=== PATIENT | female | born 1985 | race Caucasian/White ===

== ENCOUNTER 2018-06-30 17:27 | Emergency (ER) | payer MEDICARE, MEDICAID ==
[2018-06-30] MEDS ORDERED: NORMAL SALINE 1000 ML 1,000 ML IV ONE (18:35)
[2018-06-30] MEDS ORDERED: FENTANYL CITRATE INJ/PF 100 MCG/2 ML AMPUL IV ONE (18:35)
[2018-06-30] MEDS ORDERED: ONDANSETRON HCL INJ/PF 4 MG/2 ML SDV IV ONE (18:35)
--- NOTE | 2018-06-30 18:35 | ER Document Report ---
ED Medical Screen (RME) - General Chief Complaint: Abdominal Pain Stated Complaint: VOMITING Time Seen by Provider: 06/30/18 18:28 Notes: Patient is a 32-year-old female that presents to the emergency department for chief complaint of right upper quadrant pain and nausea and vomiting and diarrhea. Patient reports the pain and symptoms started on Thursday a little bit but then got worse over the past few days. ROS: Other than noted above, the 12 point review of systems was reviewed with the patient and were negative, all pertinent findings are included in the HPI. PHYSICAL EXAMINATION: Vital signs reviewed. GENERAL: Well-appearing, well-nourished and in no acute distress. HEAD: Atraumatic, normocephalic. EYES: Pupils equal round extraocular movements intact, conjunctiva are normal. ENT: Nares patent NECK: Normal range of motion CV: Heart rate tachycardic, regular rhythm LUNGS: No respiratory distress Musculoskeletal: Normal range of motion NEUROLOGICAL: Normal speech PSYCH: Normal mood, normal affect. MDM: Patient seen and examined for rapid initial assessment. Vital signs reviewed. A comprehensive ED assessment and evaluation of the patient, analysis of test results and completion of the medical decision making process will be conducted by additional ED providers. *Note is created using voice recognition software and may contain spelling, syntax or grammatical errors. - Related Data Allergies/Adverse Reactions: tetanus and diphtheria toxoids Allergy (Verified 06/30/18 17:29) Past Medical History - Social History Chew tobacco use (# tins/day): No Frequency of alcohol use: Rare Drug Abuse: None Renal/ Medical History: Denies: Hx Peritoneal Dialysis Physical Exam - Vital signs Vitals: Temp Pulse Resp BP Pulse Ox 98.7 F 106 H 18 179/92 H 97 06/30/18 17:31 06/30/18 17:31 06/30/18 17:31 06/30/18 17:31 06/30/18 17:31 Course - Vital Signs Vital signs: Temp Pulse Resp BP Pulse Ox 98.7 F 106 H 18 179/92 H 97 06/30/18 17:31 06/30/18 17:31 06/30/18 17:31 06/30/18 17:31 06/30/18 17:31
[2018-06-30 19:25] LABS: ABSOLUTE BASOPHILS # (AUTO) 0.1 10^3/uL (0.0-0.2); ABSOLUTE EOSINOPHILS # (AUTO) 0.2 10^3/uL (0.0-0.6); ABSOLUTE LYMPHOCYTES (AUTO) 3.3 10^3/uL (0.5-4.7); ABSOLUTE MONOCYTES (AUTO) 0.3 10^3/uL (0.1-1.4); ABSOLUTE NEUT (AUTO) 3.7 10^3/uL (1.7-8.2); BASOPHILS % (AUTO) 0.7 % (0-2); EOSINOPHILS % (AUTO) 2.7 % (0-6); HEMATOCRIT 45.5 % (36.0-47.0); HEMOGLOBIN 15.6 g/dL (12.0-15.5); LYMPHOCYTES % (AUTO) 43.5 % (13-45); MEAN CORPUSCULAR HEMOGLOBIN 32.1 pg (27.0-33.4); MEAN CORPUSCULAR HGB CONC 34.2 g/dL (32.0-36.0); MEAN CORPUSCULAR VOLUME 94 fl (80-97); MONOCYTES % (AUTO) 3.9 % (3-13); PLATELET COUNT 298 10^3/uL (150-450); RED BLOOD COUNT 4.85 10^6/uL (3.72-5.28); RED CELL DISTRIBUTION WIDTH 13.1 % (11.5-14.0); SEGMENTED NEUTROPHILS % (AUTO) 49.2 % (42-78); TOTAL CELLS COUNTED % (AUTO) 100 %; WHITE BLOOD COUNT 7.6 10^3/uL (4.0-10.5)
[2018-06-30 19:48] LABS: ALANINE AMINOTRANSFERASE 28 U/L (9-52); ALKALINE PHOSPHATASE 50 U/L (38-126); ANION GAP 13 (5-19); ASPARTATE AMINO TRANSFERASE 25 U/L (14-36); BILIRUBIN,DIRECT 0.3 mg/dL (0.0-0.4); BILIRUBIN,TOTAL 0.9 mg/dL (0.2-1.3); BLOOD UREA NITROGEN 11 mg/dL (7-20); CALCIUM 10.5 mg/dL (8.4-10.2); CARBON DIOXIDE 26 mmol/L (22-30); CHLORIDE 101 mmol/L (98-107); GLUCOSE 84 mg/dL (75-110); LIPASE 87.6 U/L (23-300); POTASSIUM 4.7 mmol/L (3.6-5.0); SODIUM 139.8 mmol/L (137-145); TOTAL PROTEIN 7.9 g/dL (6.3-8.2)
--- NOTE | 2018-06-30 20:16 | ER Document Report ---
ED General - General Chief Complaint: Abdominal Pain Stated Complaint: VOMITING Time Seen by Provider: 06/30/18 18:28 Primary Care Provider: CHRISTIANO PARRISH MD [ACTIVE STAFF] - Follow up in 3-5 days (This is the number of a GI doctor) Mode of Arrival: Stretcher Information source: Patient Notes: This is a 32-year-old female with a history of cerebral palsy, diverticulitis who presents to the emergency room with nausea, vomiting, abdominal pain for the last day. Patient states that the pain is in her upper abdomen. - HPI Onset: Last week Onset/Duration: Gradual Quality of pain: Dull Severity: Moderate Pain Level: 2 Associated symptoms: Nausea, Vomiting. denies: Shortness of breath Exacerbated by: Denies Relieved by: Denies Similar symptoms previously: Yes Recently seen / treated by doctor: Yes - Related Data Allergies/Adverse Reactions: azithromycin [From Zithromax] Allergy (Verified 06/30/18 20:26) tetanus and diphtheria toxoids Allergy (Verified 06/30/18 17:29) Past Medical History - General Information source: Patient - Social History Smoking Status: Never Smoker Cigarette use (# per day): No Chew tobacco use (# tins/day): No Frequency of alcohol use: Rare Drug Abuse: None Lives with: Family Family History: None Patient has suicidal ideation: No Patient has homicidal ideation: No - Past Medical History Cardiac Medical History: Reports: None Pulmonary Medical History: Reports: None EENT Medical History: Reports: None Neurological Medical History: Reports: None Endocrine Medical History: Reports: None Renal/ Medical History: Reports: None. Denies: Hx Peritoneal Dialysis Malignancy Medical History: Reports: None GI Medical History: Reports: Hx Diverticulitis Musculoskeletal Medical History: Reports None Skin Medical History: Reports None Psychiatric Medical History: Reports: Hx Depression - anxiety Traumatic Medical History: Reports: None Infectious Medical History: Reports: None Past Surgical History: Reports: Hx Orthopedic Surgery - foot/hip param Review of Systems - Review of Systems Constitutional: denies: Chills, Fever EENT: No symptoms reported Cardiovascular: denies: Chest pain, Palpitations, Heart racing Respiratory: No symptoms reported Gastrointestinal: See HPI Genitourinary: No symptoms reported Female Genitourinary: No symptoms reported Musculoskeletal: No symptoms reported Skin: No symptoms reported Hematologic/Lymphatic: No symptoms reported Neurological/Psychological: No symptoms reported Physical Exam - Vital signs Vitals: Temp Pulse Resp BP Pulse Ox 98.7 F 106 H 18 179/92 H 97 06/30/18 17:31 06/30/18 17:31 06/30/18 17:31 06/30/18 17:31 06/30/18 17:31 Notes: Physical exam: GENERAL: Patient is alert and oriented x3, complaining of upper abdominal pain. She has been given nausea medicine. HEAD: Atraumatic, normocephalic. EYES: Pupils equal round and reactive to light, extraocular movements intact, sclera anicteric, conjunctiva are normal. ENT: TMs normal, nares patent, oropharynx clear without exudates. Moist mucous membranes. NECK: Normal range of motion, supple without obvious mass or JVD. LUNGS: Breath sounds clear to auscultation bilaterally and equal. No wheezes rales or rhonchi. HEART: Regular rate and rhythm without murmurs, rubs or gallops. ABDOMEN: Soft, hypoactive bowel sounds. Tenderness to palpation in the upper quadrants. No guarding, no rebound. No masses appreciated. EXTREMITIES: Normal range of motion, no pitting or edema. No clubbing or cyan osis. NEUROLOGICAL: Cranial nerves II through XII grossly intact. Normal speech, moving all extremities. PSYCH: Normal mood, normal affect. SKIN: Warm, Dry, normal turgor, no rashes or lesions noted. Course - Re-evaluation Re-evalutation: 07/01/18 04:22 She doing better on exam repeat. She has not had any vomiting. She appears more comfortable. Her abdomen is soft. - Vital Signs Vital signs: Temp Pulse Resp BP Pulse Ox 97.7 F 78 15 136/94 H 97 07/01/18 02:21 07/01/18 02:21 07/01/18 02:21 07/01/18 02:21 07/01/18 02:21 - Laboratory Result Diagrams: 06/30/18 19:08 06/30/18 19:08 Laboratory results interpreted by me: 06/30/18 06/30/18 06/30/18 19:08 19:08 20:23 Hgb 15.6 H Calcium 10.5 H Urine Ketones 20 H Urine Blood MODERATE H - Diagnostic Test Radiology reviewed: Image reviewed, Reports reviewed - CT of the abdomen and ultrasound shows no acute abdominal process Discharge - Discharge Clinical Impression: Vomiting, Abdominal pain Condition: Stable Disposition: HOME, SELF-CARE Instructions: Abdominal Pain ([facility]), Vomiting ([facility]) Additional Instructions: As we discussed, your ultrasound looked good. CT showed no evidence of diverticulitis. Your labs look quite good. Rest, drink plenty of fluids: Start slowly and advance diet as tolerated. Take the Zofran for nausea Follow-up with the GI doctor: Left the number for them on the chart. Return to the emergency room for worsening pain, vomiting or any concerns or getting worse. Referrals: CHRISTIANO PARRISH MD [ACTIVE STAFF] - Follow up in 3-5 days (This is the number of a GI doctor)
[2018-06-30 20:54] LABS: APPEARANCE,URINE SLIGHTLY-CLOUDY; BILIRUBIN,URINE NEGATIVE (NEGATIVE); COLOR,URINE YELLOW; GLUCOSE, URINE NEGATIVE (NEGATIVE); KETONES,URINE 20 mg/dL (NEGATIVE); LEUKOCYTE ESTERASE,URINE NEGATIVE (NEGATIVE); NITRITE,URINE NEGATIVE (NEGATIVE); PROTEIN,URINE NEGATIVE (NEGATIVE); URINE SPECIFIC GRAVITY 1.016; UROBILINOGEN,URINE NEGATIVE mg/dL (<2.0)
--- NOTE | 2018-06-30 22:27 | RADIOLOGY REPORT (SQ) ---
US ABDOMEN LIMITED HISTORY: Right upper quadrant pain. COMPARISON: None. TECHNIQUE: Grayscale and color Doppler imaging of the right upper quadrant was performed. FINDINGS: The liver has normal echotexture without focal lesion identified. The main portal vein has normal hepatopetal flow. No shadowing gallstones are seen. No pericholecystic fluid or gallbladder wall thickening. The common bile duct is normal caliber. The pancreas is unremarkable. No hydronephrosis or shadowing renal stones are identified. The right kidney is normal in size. The visualized portions of the IVC and aorta are patent. IMPRESSION: No evidence of acute abdominal findings.
--- NOTE | 2018-06-30 23:37 | RADIOLOGY REPORT (SQ) ---
CT ABDOMEN PELVIS WITH IV CONTRAST EXAM DATE: 06/30/2018 21:32 HISTORY: Abdominal pain. COMPARISON: None. TECHNIQUE: CT scan of the abdomen and pelvis with IV contrast. This exam was performed according to our departmental dose-optimization program, which includes automated exposure control, adjustment of the mA and/or kV according to patient size and/or use of iterative reconstruction technique. FINDINGS: The lung bases are clear. No pleural or pericardial effusions. There is no hiatal hernia. The liver, spleen, pancreas, gallbladder, adrenal glands, and kidneys are unremarkable. No urinary stones are seen. The pelvic organs are also unremarkable. No small bowel obstruction. The appendix is not well visualized; however there are no inflammatory changes in the right lower quadrant. There is no evidence of diverticulitis. No intraperitoneal free fluid or free air is identified. There is moderate S-shaped scoliosis of the thoracolumbar spine. No acute osseous findings are appreciated. The aorta and IVC are normal. No body wall hernia is seen. IMPRESSION: No acute abdominal or pelvic pathology.
[2018-07-01] MEDS ORDERED: ONDANSETRON ODT 4 MG TAB (6 TAB/ER DISP) PO PRN (02:05)
[2018-07-01 02:36] VITALS: BP 136/94
== END 2018-07-01 02:38 | disposition home or self-care (01) ==
LOC: ER 17:27
DX: R11.2 Nausea with vomiting, unspecified (principal); R10.10 Upper abdominal pain, unspecified; R10.811 Right upper quadrant abdominal tenderness; R10.812 Left upper quadrant abdominal tenderness; G80.9 Cerebral palsy, unspecified; Z88.1 Allergy status to other antibiotic agents; Z88.7 Allergy status to serum and vaccine
CPT/HCPCS: 99284; 36415; 83690; 84703; 85025; 80053; 81001; 76705; 74177; J3010; J2405; J7030; A9270

== ENCOUNTER 2018-07-02 20:29 | Emergency (ER) | payer MEDICARE, MEDICAID ==
[2018-07-02] MEDS ORDERED: ONDANSETRON 4 MG TAB.RAPDIS PO ONE (22:55)
[2018-07-02] MEDS ORDERED: NORMAL SALINE 1000 ML 1,000 ML IV ONE (22:56)
--- NOTE | 2018-07-02 22:58 | ER Document Report ---
ED Medical Screen (RME) - General Chief Complaint: Abdominal Pain Stated Complaint: ABDOMINAL PAIN Time Seen by Provider: 07/02/18 22:55 Notes: 32-year-old female with chief complaint of vomiting and abdominal pain. Seen 2 days ago, had a workup including ultrasound and CAT scan, sent home with Zofran. States she has continued to vomit although she has not been taking Zofran. Denies fever. Pain is worse in the upper abdomen but is also generalized. Denies any history of abdominal surgeries, is sexually active but on control and just had a negative test. TRAVEL OUTSIDE OF THE [place] IN LAST 30 DAYS: No - Related Data Allergies/Adverse Reactions: azithromycin [From Zithromax] Allergy (Verified 06/30/18 20:26) tetanus and diphtheria toxoids Allergy (Verified 06/30/18 17:29) Past Medical History Renal/ Medical History: Denies: Hx Peritoneal Dialysis GI Medical History: Reports: Hx Diverticulitis Psychiatric Medical History: Reports: Hx Depression - anxiety Past Surgical History: Reports: Hx Orthopedic Surgery - foot/hip param Physical Exam - Vital signs Vitals: Temp Pulse Resp BP Pulse Ox 99.0 F 92 18 155/96 H 98 07/02/18 20:47 07/02/18 20:47 07/02/18 20:47 07/02/18 20:47 07/02/18 20:47 - Abdominal Tenderness: Tender - Generalized abdominal tenderness, worse in the upper abdomen, still no guarding or rigidity. Exam is limited by sitting position. Course - Re-evaluation Re-evalutation: I have greeted and performed a rapid initial assessment of this patient. A comprehensive ED assessment and evaluation of the patient, analysis of test results and completion of the medical decision making process will be conducted by additional ED providers. - Vital Signs Vital signs: Temp Pulse Resp BP Pulse Ox 99.0 F 92 18 155/96 H 98 07/02/18 20:47 07/02/18 20:47 07/02/18 20:47 07/02/18 20:47 07/02/18 20:47
[2018-07-02 23:22] LABS: ABSOLUTE BASOPHILS # (AUTO) 0.1 10^3/uL (0.0-0.2); ABSOLUTE EOSINOPHILS # (AUTO) 0.1 10^3/uL (0.0-0.6); ABSOLUTE LYMPHOCYTES (AUTO) 3.3 10^3/uL (0.5-4.7); ABSOLUTE MONOCYTES (AUTO) 0.3 10^3/uL (0.1-1.4); ABSOLUTE NEUT (AUTO) 3.7 10^3/uL (1.7-8.2); BASOPHILS % (AUTO) 0.7 % (0-2); EOSINOPHILS % (AUTO) 1.2 % (0-6); HEMATOCRIT 42.7 % (36.0-47.0); LYMPHOCYTES % (AUTO) 44.3 % (13-45); MEAN CORPUSCULAR HGB CONC 35.2 g/dL (32.0-36.0); MEAN CORPUSCULAR VOLUME 94 fl (80-97); MONOCYTES % (AUTO) 4.6 % (3-13); PLATELET COUNT 306 10^3/uL (150-450); RED BLOOD COUNT 4.55 10^6/uL (3.72-5.28); RED CELL DISTRIBUTION WIDTH 12.7 % (11.5-14.0); SEGMENTED NEUTROPHILS % (AUTO) 49.2 % (42-78); TOTAL CELLS COUNTED % (AUTO) 100 %; WHITE BLOOD COUNT 7.5 10^3/uL (4.0-10.5)
[2018-07-02 23:39] LABS: ALANINE AMINOTRANSFERASE 30 U/L (9-52); ALBUMIN 4.9 g/dL (3.5-5.0); ALKALINE PHOSPHATASE 50 U/L (38-126); ANION GAP 12 (5-19); ASPARTATE AMINO TRANSFERASE 29 U/L (14-36); BILIRUBIN,DIRECT 0.4 mg/dL (0.0-0.4); BILIRUBIN,TOTAL 0.8 mg/dL (0.2-1.3); BLOOD UREA NITROGEN 10 mg/dL (7-20); CALCIUM 10.2 mg/dL (8.4-10.2); CARBON DIOXIDE 26 mmol/L (22-30); CHLORIDE 103 mmol/L (98-107); GLUCOSE 87 mg/dL (75-110); LIPASE 91.6 U/L (23-300); POTASSIUM 3.9 mmol/L (3.6-5.0); SODIUM 141.4 mmol/L (137-145); TOTAL PROTEIN 7.8 g/dL (6.3-8.2)
--- NOTE | 2018-07-03 01:57 | ER Document Report ---
ED General - General Chief Complaint: Abdominal Pain Stated Complaint: ABDOMINAL PAIN Time Seen by Provider: 07/02/18 22:55 Notes: Patient is a 32-year-old female with a past medical history of cerebral palsy, no prior intra-abdominal surgeries, presents complaining of ongoing generalized abdominal pain, nausea and vomiting. The patient states that symptoms have remained relatively unchanged since discharge. She has not been taking the Zo kwasi that was prescribed stating "I do not think it will work anyways". She states it tempting to eat or drink seems to worsen her symptoms. She denies any history of similar symptoms in the past. She states the abdominal pain is most located in the epigastrium right upper quadrant, is a throbbing, aching, constant discomfort. She states that she would like me to contact her primary care doctor. She has not had fever. Denies dysuria, vaginal bleeding, vaginal discharge. Denies history of similar symptoms in the past. TRAVEL OUTSIDE OF THE [place] IN LAST 30 DAYS: No - Related Data Allergies/Adverse Reactions: azithromycin [From Zithromax] Allergy (Verified 06/30/18 20:26) tetanus and diphtheria toxoids Allergy (Verified 06/30/18 17:29) Past Medical History - General Information source: Patient - Social History Smoking Status: Never Smoker Chew tobacco use (# tins/day): No Frequency of alcohol use: None Drug Abuse: None Lives with: Spouse/Significant other Family History: Reviewed & Not Pertinent Patient has suicidal ideation: No Patient has homicidal ideation: No Renal/ Medical History: Denies: Hx Peritoneal Dialysis GI Medical History: Reports: Hx Diverticulitis Psychiatric Medical History: Reports: Hx Depression - anxiety Past Surgical History: Reports: Hx Orthopedic Surgery - foot/hip param Review of Systems - Review of Systems Notes: Constitutional: Negative for fever. HENT: Negative for sore throat. Eyes: Negative for visual changes. Cardiovascular: Negative for chest pain. Respiratory: Negative for shortness of breath. Gastrointestinal: Positive for abdominal pain and vomiting Genitourinary: Negative for dysuria. Musculoskeletal: Negative for back pain. Skin: Negative for rash. Neurological: Negative for headaches, weakness or numbness. 10 point ROS negative except as marked above and in HPI. Physical Exam - Vital signs Vitals: Temp Pulse Resp BP Pulse Ox 99.0 F 92 18 155/96 H 98 07/02/18 20:47 03/29/19 20:47 07/02/18 20:47 07/02/18 20:47 07/02/18 20:47 Interpretation: Hypertensive Notes: PHYSICAL EXAMINATION: GENERAL: Well-appearing, well-nourished and in no acute distress. HEAD: Atraumatic, normocephalic. EYES: Pupils equal round and reactive to light, extraocular movements intact, sclera anicteric, conjunctiva are normal. ENT: nares patent, oropharynx clear without exudates. Moist mucous membranes. NECK: Normal range of motion, supple without lymphadenopathy LUNGS: Breath sounds clear to auscultation bilaterally and equal. No wheezes rales or rhonchi. HEART: Regular rate and rhythm without murmurs ABDOMEN: Soft, nontender, normoactive bowel sounds. No guarding, no rebound. No masses appreciated. EXTREMITIES: Normal range of motion, no pitting or edema. No cyanosis. NEUROLOGICAL: No focal neurological deficits. Moves all extremities spontaneously and on command. PSYCH: Somewhat anxious SKIN: Warm, Dry, normal turgor, no rashes or lesions noted. Course - Re-evaluation Re-evalutation: 07/03/18 02:24 Patient presents with ongoing abdominal pain and vomiting although is not trialing the medications with which she was discharged home. The patient actually appears well on exam, her vitals are completely within normal limits. She has no focal tenderness, rebound or guarding on exam. Despite the patient's report that she has been unable to tolerate fluids she has not lost any weight from 2 days ago, her heart rate and blood pressure are both within normal limits and she has no evidence of acute kidney injury. The patient is actually been drinking fluids here in the emergency department without any apparent difficulty and took oral ondansetron. She did have a CT scan of her abdomen and pelvis as well as a right upper quadrant ultrasound 48 hours ago both of which were noted to be unremarkable. I have explained the patient that the exact etiology of her presentation is uncertain but I do not believe repeat imaging of the abdomen pelvis is appropriate at this point. I have tried to contact her primary care physician Dr. Damian and I am awaiting callback. I otherwise think patient is appropriate for discharge home with close outpatient follow-up. 07/03/18 03:22 Dr. Damian and I have spoken, he does agree with management at this point, states the patient has a long-standing history of severe anxiety, actually had been scheduled twice in his clinic within the past 1 week and did not present for that appointment. We did review all labs, imaging data as well as the previous visit and today's exam. He states that he agrees with my assessment and that the patient can be discharged home. At this time will discharge with return precautions and follow-up recommendations. Verbal discharge instructions given a the bedside and opportunity for questions given. Medication warnings reviewed. Patient is in agreement with this plan and has verbalized understanding of return precautions and the need for primary care follow-up in the next 24-72 hours. - Vital Signs Vital signs: Temp Pulse Resp BP Pulse Ox 99.0 F 92 18 155/96 H 98 07/02/18 20:47 07/02/18 20:47 07/02/18 20:47 07/02/18 20:47 07/02/18 20:47 - Laboratory Result Diagrams: 07/02/18 23:10 07/02/18 23:10 Discharge - Discharge Clinical Impression: Abdominal cramping Nausea & vomiting Qualifiers: Vomiting type: unspecified Vomiting Intractability: non-intractable Qualified Code(s): R11.2 - Nausea with vomiting, unspecified Condition: Good Disposition: HOME, SELF-CARE Additional Instructions: You have been seen in the Emergency Department (ED) today for nausea and vomiting. Your work up today has not shown a clear cause for your symptoms. I have prescribed Reglan which she can use as needed for nausea or vomiting Follow up with your doctor as soon as possible regarding today's emergent visit and your symptoms of nausea. I did speak directly to Dr.Haga lopez. He states that he will call you tomorrow to see how your doing, agrees with our management john and does not recommend any additional imaging today. Return to the Emergency Department (ED) if you develop worsening abdominal pain, bloody vomiting, bloody diarrhea, if you are unable to tolerate fluids due to vomiting, or if you develop other symptoms that concern you. Prescriptions: Metoclopramide HCl [Reglan 10 mg Tablet] 1 - 2 tab PO ASDIR PRN #25 tablet PRN Reason:
[2018-07-03 04:07] VITALS: BP 145/81
== END 2018-07-03 04:20 | disposition home or self-care (01) ==
LOC: ER 20:29
DX: R10.84 Generalized abdominal pain (principal); R11.2 Nausea with vomiting, unspecified; G80.9 Cerebral palsy, unspecified; Z88.1 Allergy status to other antibiotic agents; Z88.7 Allergy status to serum and vaccine; Z87.19 Personal history of other diseases of the digestive system
CPT/HCPCS: 99283; 96360; 96361; 36415; 83690; 85025; 80053; A9270; J7030; S0119

== ENCOUNTER 2018-08-22 22:37 | Emergency (ER) | payer MEDICARE, MEDICAID ==
[2018-08-23 00:24] LABS: ABSOLUTE EOSINOPHILS # (AUTO) 0.1 10^3/uL (0.0-0.6); ABSOLUTE LYMPHOCYTES (AUTO) 3.3 10^3/uL (0.5-4.7); ABSOLUTE MONOCYTES (AUTO) 0.3 10^3/uL (0.1-1.4); ABSOLUTE NEUT (AUTO) 5.1 10^3/uL (1.7-8.2); BASOPHILS % (AUTO) 0.5 % (0-2); EOSINOPHILS % (AUTO) 1.1 % (0-6); HEMATOCRIT 43.5 % (36.0-47.0); HEMOGLOBIN 14.7 g/dL (12.0-15.5); LYMPHOCYTES % (AUTO) 37.2 % (13-45); MEAN CORPUSCULAR HEMOGLOBIN 31.5 pg (27.0-33.4); MEAN CORPUSCULAR HGB CONC 33.9 g/dL (32.0-36.0); MEAN CORPUSCULAR VOLUME 93 fl (80-97); MONOCYTES % (AUTO) 3.7 % (3-13); PLATELET COUNT 278 10^3/uL (150-450); RED BLOOD COUNT 4.67 10^6/uL (3.72-5.28); RED CELL DISTRIBUTION WIDTH 12.6 % (11.5-14.0); SEGMENTED NEUTROPHILS % (AUTO) 57.5 % (42-78); TOTAL CELLS COUNTED % (AUTO) 100 %; WHITE BLOOD COUNT 8.9 10^3/uL (4.0-10.5)
[2018-08-23 00:52] LABS: ALANINE AMINOTRANSFERASE 24 U/L (9-52); ALBUMIN 4.7 g/dL (3.5-5.0); ALKALINE PHOSPHATASE 49 U/L (38-126); ANION GAP 11 (5-19); ASPARTATE AMINO TRANSFERASE 20 U/L (14-36); BILIRUBIN,DIRECT 0.2 mg/dL (0.0-0.4); BILIRUBIN,TOTAL 0.5 mg/dL (0.2-1.3); BLOOD UREA NITROGEN 9 mg/dL (7-20); CALCIUM 9.7 mg/dL (8.4-10.2); CARBON DIOXIDE 28 mmol/L (22-30); CHLORIDE 101 mmol/L (98-107); GLUCOSE 87 mg/dL (75-110); POTASSIUM 4.3 mmol/L (3.6-5.0); SODIUM 139.8 mmol/L (137-145); TOTAL PROTEIN 7.5 g/dL (6.3-8.2)
[2018-08-23 01:06] LABS: ACETAMINOPHEN < 10 ug/mL (10-30); ALCOHOL < 10 mg/dL (NONE DETECTED); SALICYLATE < 1.0 mg/dL (2.0-20.0)
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
[2018-08-23 01:55] LABS: APPEARANCE,URINE CLEAR; BILIRUBIN,URINE NEGATIVE (NEGATIVE); COLOR,URINE YELLOW; GLUCOSE, URINE NEGATIVE (NEGATIVE); KETONES,URINE NEGATIVE (NEGATIVE); LEUKOCYTE ESTERASE,URINE SMALL (NEGATIVE); NITRITE,URINE NEGATIVE (NEGATIVE); PROTEIN,URINE NEGATIVE (NEGATIVE); URINE SPECIFIC GRAVITY 1.006; UROBILINOGEN,URINE NEGATIVE mg/dL (<2.0)
[2018-08-23 02:08] LABS: URINE AMPHETAMINES SCREEN NEGATIVE; URINE BARBITURATES SCREEN NEGATIVE; URINE BENZODIAZEPINES SCREEN NEGATIVE; URINE COCAINE SCREEN NEGATIVE; URINE MARIJUANA (THC) SCREEN NEGATIVE; URINE METHADONE SCREEN NEGATIVE; URINE PHENCYCLIDINE SCREEN NEGATIVE
--- NOTE | 2018-08-23 03:17 | RADIOLOGY REPORT (SQ) ---
EXAM DESCRIPTION: XR FOOT 3 OR MORE VIEWS COMPLETED DATE/TME: 08/23/2018 00:55 CLINICAL HISTORY: 33 years, Female, left foot pain/swelling COMPARISON: None. FINDINGS: 3 views of the left foot. Pes planus deformity. Hallux valgus deformity. No acute fracture or dislocation. IMPRESSION: 1. No acute fracture or dislocation. copyright 2010 [employer]- All Rights Reserved
--- NOTE | 2018-08-23 06:37 | EKG REPORT ---
SEVERITY:- NORMAL ECG - SINUS RHYTHM : Confirmed by: Dk Riggins MD 23-Aug-2018 06:36:20
[2018-08-23] MEDS: METOCLOPRAMIDE HCL 10 MG TABLET PO SCH ×2 (08:43→09:06)
[2018-08-23] MEDS: PRENATAL VITAMIN W DHA CAPSULE PO SCH ×2 (08:43→09:05)
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
[2018-08-23] MEDS: CHLORPROMAZINE HCL 50 MG TABLET PO SCH ×2 (15:00→22:11)
[2018-08-23] MEDS: BENZTROPINE MESYLATE 1 MG TABLET PO SCH (15:00)
[2018-08-23] MEDS ORDERED: METOCLOPRAMIDE HCL 10 MG TABLET PO ONE (22:03)
[2018-08-23] MEDS ORDERED: PRENATAL VITAMIN W DHA CAPSULE PO ONE (22:04)
[2018-08-24] MEDS: CHLORPROMAZINE HCL 50 MG TABLET PO SCH (06:41)
[2018-08-24] MEDS: METOCLOPRAMIDE HCL 10 MG TABLET PO SCH (09:09)
[2018-08-24] MEDS: BENZTROPINE MESYLATE 1 MG TABLET PO SCH (09:09)
[2018-08-24] MEDS: PRENATAL VITAMIN W DHA CAPSULE PO SCH (09:09)
--- NOTE | 2018-08-24 09:41 | ER Document Report ---
Doctor's Note Notes: 08/24/18 09:41 33-year-old female with mild cerebral palsy with some paranoid delusions. They are attempting to find placement. Vital signs are stable. Previous labs as recorded. Patient is calm and cooperative at this time.
[2018-08-24 11:46] VITALS: BP 102/60
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
== END 2018-08-24 13:30 ==
LOC: ER 22:37
DX: Z04.6 Encounter for general psychiatric examination, requested by authority (principal); F22 Delusional disorders; M79.672 Pain in left foot; G80.9 Cerebral palsy, unspecified; Z91.14 Patient's other noncompliance with medication regimen; Z88.1 Allergy status to other antibiotic agents; Z88.7 Allergy status to serum and vaccine; Z87.891 Personal history of nicotine dependence
CPT/HCPCS: 93005; 99285; 36415; 80307 ×4; 84703; 85025; 80053; 81001; 93010; A9270 ×8; J3490

== ENCOUNTER 2018-09-01 18:55 | Emergency (ER) | payer MEDICARE, MEDICAID ==
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
[2018-09-01 20:43] LABS: ABSOLUTE EOSINOPHILS # (AUTO) 0.1 10^3/uL (0.0-0.6); ABSOLUTE LYMPHOCYTES (AUTO) 2.8 10^3/uL (0.5-4.7); ABSOLUTE MONOCYTES (AUTO) 0.3 10^3/uL (0.1-1.4); ABSOLUTE NEUT (AUTO) 3.2 10^3/uL (1.7-8.2); BASOPHILS % (AUTO) 0.8 % (0-2); EOSINOPHILS % (AUTO) 1.8 % (0-6); HEMATOCRIT 39.6 % (36.0-47.0); HEMOGLOBIN 13.5 g/dL (12.0-15.5); LYMPHOCYTES % (AUTO) 43.8 % (13-45); MEAN CORPUSCULAR HEMOGLOBIN 31.9 pg (27.0-33.4); MEAN CORPUSCULAR HGB CONC 34.1 g/dL (32.0-36.0); MEAN CORPUSCULAR VOLUME 94 fl (80-97); MONOCYTES % (AUTO) 4.3 % (3-13); PLATELET COUNT 295 10^3/uL (150-450); RED BLOOD COUNT 4.23 10^6/uL (3.72-5.28); RED CELL DISTRIBUTION WIDTH 12.8 % (11.5-14.0); SEGMENTED NEUTROPHILS % (AUTO) 49.3 % (42-78); TOTAL CELLS COUNTED % (AUTO) 100 %; WHITE BLOOD COUNT 6.4 10^3/uL (4.0-10.5)
[2018-09-01 20:48] LABS: APPEARANCE,URINE CLOUDY; BILIRUBIN,URINE NEGATIVE (NEGATIVE); COLOR,URINE YELLOW; GLUCOSE, URINE NEGATIVE (NEGATIVE); KETONES,URINE TRACE mg/dL (NEGATIVE); LEUKOCYTE ESTERASE,URINE MODERATE (NEGATIVE); NITRITE,URINE NEGATIVE (NEGATIVE); PROTEIN,URINE NEGATIVE (NEGATIVE); URINE SPECIFIC GRAVITY 1.023
[2018-09-01 21:11] LABS: ACETAMINOPHEN < 10 ug/mL (10-30); ALANINE AMINOTRANSFERASE 22 U/L (9-52); ALBUMIN 4.5 g/dL (3.5-5.0); ALCOHOL < 10 mg/dL (NONE DETECTED); ALKALINE PHOSPHATASE 42 U/L (38-126); ANION GAP 9 (5-19); ASPARTATE AMINO TRANSFERASE 22 U/L (14-36); BILIRUBIN,DIRECT 0.2 mg/dL (0.0-0.4); BILIRUBIN,TOTAL 0.4 mg/dL (0.2-1.3); BLOOD UREA NITROGEN 11 mg/dL (7-20); CALCIUM 9.5 mg/dL (8.4-10.2); CARBON DIOXIDE 28 mmol/L (22-30); CHLORIDE 105 mmol/L (98-107); POTASSIUM 4.5 mmol/L (3.6-5.0); SALICYLATE < 1.0 mg/dL (2.0-20.0); SODIUM 142.1 mmol/L (137-145); TOTAL PROTEIN 6.8 g/dL (6.3-8.2)
[2018-09-01 21:15] LABS: GLUCOSE 66 mg/dL (75-110)
[2018-09-01 21:18] LABS: URINE AMPHETAMINES SCREEN NEGATIVE; URINE BARBITURATES SCREEN NEGATIVE; URINE BENZODIAZEPINES SCREEN NEGATIVE; URINE COCAINE SCREEN NEGATIVE; URINE MARIJUANA (THC) SCREEN NEGATIVE; URINE METHADONE SCREEN NEGATIVE; URINE PHENCYCLIDINE SCREEN NEGATIVE
[2018-09-01] MEDS ORDERED: LORAZEPAM INJ 2 MG/1 ML VIAL IM ONE (21:46)
[2018-09-01] MEDS ORDERED: DIPHENHYDRAMINE HCL 50 MG/ML VIAL IM ONE (21:46)
--- NOTE | 2018-09-01 22:17 | EKG REPORT ---
SEVERITY:- NORMAL ECG - SINUS RHYTHM : Confirmed by: Angle Mir MD 01-Sep-2018 22:16:19
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
[2018-09-01] MEDS ORDERED: CEPHALEXIN 500 MG CAPSULE PO ONE (23:11)
[2018-09-02] MEDS ORDERED: CEPHALEXIN 500 MG CAPSULE PO ONE (09:05)
[2018-09-02] MEDS ORDERED: METOCLOPRAMIDE HCL 10 MG TABLET PO ONE (10:03)
[2018-09-02] MEDS ORDERED: PRENATAL VITAMIN W DHA CAPSULE PO ONE (10:05)
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
--- NOTE | 2018-09-02 11:54 | PSYCHOLOGICAL NOTE ---
Psych Note - Psych Note Date seen by psych provider: 09/02/18 Time seen by psych provider: 07:30 - 1040 Psych Note: Reason for Consult: IVC 33-year-old female with schizophrenia, cerebral palsy, ataxia presents with IVC paperwork in place that was initiated from [facility] for paranoid delusions, hallucinations. Patient is alert and orientated to person, place, and time. Mood is overall euthymic with congruent affect. Patient denies suicidal and homicidal ideation. Delusions of persecution and paranoia are noted. Patient is not demonstrating behavior of currently responding to internal stimuli i.e. good eye contact and organized linear thought process. Thought content is very focused on patient's delusions. Attention and concentration is poor. Insight, judgment, impulse control is poor. Diagnosis: 298.9 (F29) Unspecified Schizophrenia Spectrum and Other Psychotic Disorder Medication recommendations made by the psychiatric medical provider, Dr. Anthony MD., includes: Add Thorazine 50MG every 8 hours for psychosis Add Cogentin 1MG daily to curb tremor side effects often associated with antipsychotic medications Impression/Plan: Recommendation to maintain IVC. Patient is demonstrating very little insight to her current circumstance i.e. thinking there has been a case of mistaken identity in regards to her IVC and her mental health diagnosis. Patient verbalizes delusions of both persecution and paranoia. She has very little insight and judgment into her mental health diagnosis and apparently has not been taking any medications since her release from [facility] on Wednesday, August 29, 2018. Patient was accepted to [facility]; transportation has been requested. Also [facility]'s office report transportation will occur tomorrow. Dr. Nolan was consulted to care management of this patient; attending physicians in agreement with recommendations and disposition.
[2018-09-02 14:24] VITALS: BP 125/80
== END 2018-09-02 14:15 | disposition other institution (70) ==
LOC: ER 18:55
DX: F22 Delusional disorders (principal); F20.9 Schizophrenia, unspecified; G80.9 Cerebral palsy, unspecified; Z88.1 Allergy status to other antibiotic agents; Z88.7 Allergy status to serum and vaccine
CPT/HCPCS: 93005; 99285; 96372; 36415; 80307 ×4; 84703; 85025; 80053; 81001; 93010; A9270 ×2; J1200; J2060

== ENCOUNTER 2018-10-21 12:00 | Emergency (ER) | payer MEDICARE, MEDICAID ==
--- NOTE | 2018-10-21 12:26 | ER Document Report ---
ED Medical Screen (RME) - General Chief Complaint: Abdominal Pain Stated Complaint: ABDOMINAL PAIN Time Seen by Provider: 10/21/18 12:14 Primary Care Provider: MARTY MARTINEZ MD [Primary Care Provider] - Follow up as needed Mode of Arrival: Wheelchair Information source: Patient Notes: Patient is a 33-year-old female with history of gastroparesis complaining of abdominal pain over the last 2 days with nausea and diarrhea. Patient denies any fevers. Exam: Generalized abdominal tenderness. I have greeted and performed a rapid initial assessment of this patient. A comprehensive ED assessment and evaluation of the patient, analysis of test results and completion of the medical decision making process will be conducted by additional ED providers. I have specifically instructed the patient or family members with the patient to immediately return to any nursing staff should anything change in the patient's condition or with their chief complaint. This medical record was dictated with voice recognizing software. There may be grammatical, syntax errors that are unintended. TRAVEL OUTSIDE OF THE [place] IN LAST 30 DAYS: No - Related Data Allergies/Adverse Reactions: azithromycin [From Zithromax] Allergy (Verified 10/21/18 12:01) tetanus and diphtheria toxoids Allergy (Verified 10/21/18 12:01) Past Medical History - Social History Frequency of alcohol use: Occasional Drug Abuse: None Renal/ Medical History: Denies: Hx Peritoneal Dialysis GI Medical History: Reports: Hx Diverticulitis Psychiatric Medical History: Reports: Hx Depression - anxiety Past Surgical History: Reports: Hx Orthopedic Surgery - foot/hip param Physical Exam - Vital signs Vitals: Temp Pulse Resp BP Pulse Ox 98.3 F 91 20 146/92 H 98 10/21/18 12:04 10/21/18 12:04 10/21/18 12:04 10/21/18 12:04 10/21/18 12:04 Course - Vital Signs Vital signs: Temp Pulse Resp BP Pulse Ox 98.3 F 91 20 146/92 H 98 10/21/18 12:04 10/21/18 12:04 10/21/18 12:04 10/21/18 12:04 10/21/18 12:04 Doctor's Discharge - Discharge Referrals: MARTY MARTINEZ MD [Primary Care Provider] - Follow up as needed
[2018-10-21 13:01] LABS: ABSOLUTE LYMPHOCYTES (AUTO) 2.7 10^3/uL (0.5-4.7); ABSOLUTE MONOCYTES (AUTO) 0.2 10^3/uL (0.1-1.4); ABSOLUTE NEUT (AUTO) 5.1 10^3/uL (1.7-8.2); BASOPHILS % (AUTO) 0.5 % (0-2); EOSINOPHILS % (AUTO) 0.4 % (0-6); HEMATOCRIT 45.3 % (36.0-47.0); HEMOGLOBIN 15.2 g/dL (12.0-15.5); LYMPHOCYTES % (AUTO) 33.6 % (13-45); MEAN CORPUSCULAR HEMOGLOBIN 31.7 pg (27.0-33.4); MEAN CORPUSCULAR HGB CONC 33.5 g/dL (32.0-36.0); MEAN CORPUSCULAR VOLUME 95 fl (80-97); MONOCYTES % (AUTO) 2.9 % (3-13); PLATELET COUNT 347 10^3/uL (150-450); RED BLOOD COUNT 4.79 10^6/uL (3.72-5.28); RED CELL DISTRIBUTION WIDTH 12.9 % (11.5-14.0); SEGMENTED NEUTROPHILS % (AUTO) 62.6 % (42-78); TOTAL CELLS COUNTED % (AUTO) 100 %; WHITE BLOOD COUNT 8.2 10^3/uL (4.0-10.5)
[2018-10-21 13:07] LABS: APPEARANCE,URINE SLIGHTLY-CLOUDY; BILIRUBIN,URINE NEGATIVE (NEGATIVE); COLOR,URINE YELLOW; GLUCOSE, URINE NEGATIVE (NEGATIVE); KETONES,URINE TRACE mg/dL (NEGATIVE); LEUKOCYTE ESTERASE,URINE NEGATIVE (NEGATIVE); NITRITE,URINE NEGATIVE (NEGATIVE); PROTEIN,URINE NEGATIVE (NEGATIVE); URINE SPECIFIC GRAVITY 1.013; UROBILINOGEN,URINE NEGATIVE mg/dL (<2.0)
[2018-10-21 13:18] LABS: ALANINE AMINOTRANSFERASE 28 U/L (9-52); ALKALINE PHOSPHATASE 44 U/L (38-126); ANION GAP 12 (5-19); ASPARTATE AMINO TRANSFERASE 24 U/L (14-36); BILIRUBIN,DIRECT 0.3 mg/dL (0.0-0.4); BILIRUBIN,TOTAL 0.5 mg/dL (0.2-1.3); BLOOD UREA NITROGEN 9 mg/dL (7-20); CALCIUM 10.2 mg/dL (8.4-10.2); CARBON DIOXIDE 26 mmol/L (22-30); CHLORIDE 104 mmol/L (98-107); GLUCOSE 87 mg/dL (75-110); LIPASE 96.1 U/L (23-300); POTASSIUM 4.4 mmol/L (3.6-5.0); SODIUM 141.7 mmol/L (137-145); TOTAL PROTEIN 7.9 g/dL (6.3-8.2)
--- NOTE | 2018-10-21 16:47 | ER Document Report ---
ED General - General Chief Complaint: Abdominal Pain Stated Complaint: ABDOMINAL PAIN Time Seen by Provider: 10/21/18 12:14 Primary Care Provider: MARTY MARTINEZ MD [NO LOCAL MD] - Follow up as needed Mode of Arrival: Wheelchair Notes: This is a 33-year-old female patient emergency department complaining of gastroparesis. Patient has long-standing mental health issues. Has been recently committed to mental health institutions. States that this is not her mental health issues that she has gastroparesis and she needs help for that. When questioned about her mental health she states that there is an person that is trying to get her involuntarily committed who poses as a nurse and keeps getting her committed. She refuses to cooperate with our exam. Began screaming. TRAVEL OUTSIDE OF THE [place] IN LAST 30 DAYS: No - HPI Onset: Just prior to arrival Quality of pain: Achy Severity: Mild Pain Level: 2 Associated symptoms: None - Related Data Allergies/Adverse Reactions: azithromycin [From Zithromax] Allergy (Verified 10/21/18 12:01) tetanus and diphtheria toxoids Allergy (Verified 10/21/18 12:01) Past Medical History - General Information source: Patient - Social History Smoking Status: Never Smoker Frequency of alcohol use: Occasional Drug Abuse: None Family History: Reviewed & Not Pertinent Patient has suicidal ideation: No Patient has homicidal ideation: No Renal/ Medical History: Denies: Hx Peritoneal Dialysis GI Medical History: Reports: Hx Diverticulitis Psychiatric Medical History: Reports: Hx Depression - anxiety Past Surgical History: Reports: Hx Orthopedic Surgery - foot/hip param Review of Systems - Review of Systems Notes: Constitutional: denies: Chills, Diaphoresis, Fever, Malaise, Weakness EENT: denies: Eye discharge, Blurred vision, Tearing, Double vision, Nose congestion, Nose discharge, Throat swelling, Mouth pain Cardiovascular: denies: Palpitations, Heart racing, Orthopnea, Dyspnea, Chest pain Respiratory: denies: Cough, Hurts to breathe, Wheezing, Shortness of breath Gastrointestinal: denies: Diarrhea, Nausea, Vomiting, Black stools, bright red blood in stool, +Abdominal pain, Genitourinary: denies: Burning, Dysuria, Discharge, Frequency, Flank pain, Hematuria Musculoskeletal: denies: Joint pain, Joint swelling, Muscle pain, Muscle stiffness, back pain Hematologic/Lymphatic: denies: Anemia, Easy bleeding, Easy bruising, Blood clots Neurological/Psychological: denies: Confusion, Dementia, Depression, Loss of consciousness Skin: No lesions, no masses, no skin breakdown, no abscesses Physical Exam - Vital signs Vitals: Temp Pulse Resp BP Pulse Ox 98.3 F 91 20 146/92 H 98 10/21/18 12:04 10/21/18 12:04 10/21/18 12:04 10/21/18 12:04 10/21/18 12:04 Interpretation: Normal - General General appearance: Appears well, Alert - HEENT Head: Normocephalic, Atraumatic Eyes: Normal Pupils: PERRL - Respiratory Respiratory status: No respiratory distress Chest status: Nontender Breath sounds: Normal Chest palpation: Normal - Cardiovascular Rhythm: Regular Heart sounds: Normal auscultation Murmur: No - Abdominal Inspection: Normal Distension: No distension Bowel sounds: Normal Tenderness: Nontender Organomegaly: No organomegaly - Back Back: Normal, Nontender - Extremities General upper extremity: Normal inspection, Nontender, Normal color, Normal ROM, Normal temperature General lower extremity: Normal inspection, Nontender, Normal color, Normal ROM, Normal temperature, Normal weight bearing. No: Nasim's sign - Neurological Neuro grossly intact: Yes Cognition: Normal Orientation: AAOx4 [place] Coma Scale Eye Opening: Spontaneous [place] Coma Scale Verbal: Oriented [place] Coma Scale Motor: Obeys Commands Elizabeth Coma Scale Total: 15 Speech: Normal Motor strength normal: LUE, RUE, LLE, RLE Sensory: Normal - Psychological Associated symptoms: Aggressive, Agitated, Combative - Skin Skin Temperature: Warm Skin Moisture: Dry Skin Color: Normal Course - Re-evaluation Re-evalutation: 10/21/18 17:40 Patient let me evaluate her and then began to go on a tirade about how someone was trying to poison her. Began screaming. Refusing to change. Obviously acut benny psychotic. Will need to medicate. Will place her on IV fluids. Mental health has seen and agrees. We will continue to follow throughout the night. Laboratory 10/21/18 10/21/18 10/21/18 12:25 12:25 12:25 WBC 8.2 RBC 4.79 Hgb 15.2 Hct 45.3 MCV 95 MCH 31.7 MCHC 33.5 RDW 12.9 Plt Count 347 Seg Neutrophils % 62.6 Lymphocytes % 33.6 Monocytes % 2.9 L Eosinophils % 0.4 Basophils % 0.5 Absolute Neutrophils 5.1 Absolute Lymphocytes 2.7 Absolute Monocytes 0.2 Absolute Eosinophils 0.0 Absolute Basophils 0.0 Sodium 141.7 Potassium 4.4 Chloride 104 Carbon Dioxide 26 Anion Gap 12 BUN 9 Creatinine 0.81 Est GFR ( Amer) > 60 Est GFR (Non-Af Amer) > 60 Glucose 87 Calcium 10.2 Total Bilirubin 0.5 Direct Bilirubin 0.3 Neonat Total Bilirubin Not Reportable Neonat Direct Bilirubin Not Reportable Neonat Indirect Bili Not Reportable AST 24 ALT 28 Alkaline Phosphatase 44 Total Protein 7.9 Albumin 5.0 Lipase 96.1 Urine Color YELLOW Urine Appearance SLIGHTLY-CLOUDY Urine pH 6.0 Ur Specific [place] 1.013 Urine Protein NEGATIVE Urine Glucose (UA) NEGATIVE Urine Ketones TRACE H Urine Blood NEGATIVE Urine Nitrite NEGATIVE Urine Bilirubin NEGATIVE Urine Urobilinogen NEGATIVE Ur Leukocyte Esterase NEGATIVE Urine WBC (Auto) 1 Urine RBC (Auto) 14 U Hyaline Cast (Auto) 11 Squamous Epi Cells Auto 1 Urine Mucus (Auto) FEW Urine Ascorbic Acid 40 H Urine HCG, Qual NEGATIVE 10/21/18 17:43 Acute Abdomen Series 10/21/18 16:48 IMPRESSION: NO RADIOGRAPHIC EVIDENCE FOR ACUTE ABDOMINAL DISEASE. MARKED SCOLIOSIS. 10/21/18 17:43 - Vital Signs Vital signs: Temp Pulse Resp BP Pulse Ox 98.3 F 91 20 146/92 H 98 10/21/18 12:04 10/21/18 12:04 10/21/18 12:04 10/21/18 12:04 10/21/18 12:04 - Laboratory Result Diagrams: 10/21/18 12:25 10/21/18 12:25 Laboratory results interpreted by me: 10/21/18 10/21/18 12:25 12:25 Monocytes % 2.9 L Urine Ketones TRACE H Urine Ascorbic Acid 40 H Discharge - Discharge Clinical Impression: Acute psychosis, Gastroparesis Disposition: HOME, SELF-CARE Referrals: MARTY MARTINEZ MD [NO LOCAL MD] - Follow up as needed
[2018-10-21] MEDS ORDERED: DEXTROSE 5%-1/2 NORMAL SALINE 1,000 ML IV ONE (16:48)
--- NOTE | 2018-10-21 17:29 | RADIOLOGY REPORT (SQ) ---
EXAM DESCRIPTION: ACUTE ABDOMEN SERIES COMPLETED DATE/TIME: 10/21/2018 5:16 pm REASON FOR STUDY: abd pain COMPARISON: None. NUMBER OF VIEWS: Three views. TECHNIQUE: Frontal chest, supine abdomen and upright/decubitus abdomen radiographic images acquired. LIMITATIONS: None. FINDINGS: CHEST: Lungs clear of infiltrates. FREE AIR: None. No abnormal gas collections. BOWEL GAS PATTERN: Nonobstructive pattern. No dilated loops or air fluid levels. CALCIFICATIONS: No suspicious calcifications. HARDWARE: None in the abdomen. SOFT TISSUES: No gross mass or suggestion of organomegaly. BONES: Marked thoracolumbar scoliosis. No acute fracture. No worrisome bone lesions. OTHER: No other significant finding. IMPRESSION: NO RADIOGRAPHIC EVIDENCE FOR ACUTE ABDOMINAL DISEASE. MARKED SCOLIOSIS. TECHNICAL DOCUMENTATION: JOB ID: [id number] [employer]- All Rights Reserved Reading location - IP/workstation name: [email or web address]
[2018-10-21] MEDS ORDERED: LORAZEPAM INJ 2 MG/1 ML VIAL IM ONE (17:44)
[2018-10-21] MEDS ORDERED: HALOPERIDOL LACTATE INJ 5 MG/1 ML VIAL IM ONE (17:44)
[2018-10-21 17:56] LABS: URINE AMPHETAMINES SCREEN NEGATIVE; URINE BARBITURATES SCREEN NEGATIVE; URINE BENZODIAZEPINES SCREEN NEGATIVE; URINE COCAINE SCREEN NEGATIVE; URINE MARIJUANA (THC) SCREEN NEGATIVE; URINE METHADONE SCREEN NEGATIVE; URINE PHENCYCLIDINE SCREEN NEGATIVE
[2018-10-21 18:55] LABS: ACETAMINOPHEN < 10 ug/mL (10-30); ALCOHOL < 10 mg/dL (NONE DETECTED); SALICYLATE < 1.0 mg/dL (2.0-20.0)
--- NOTE | 2018-10-22 10:25 | ER Document Report ---
Doctor's Note Notes: 10/22/18 10:24 I have evaluated this pt. this amand she whitten no c/o at this time. She feels all of her needs are being metand her physical exam is normal. She wants to go home. She is awaiting disposition per mental health.
--- NOTE | 2018-10-22 10:51 | RADIOLOGY REPORT (SQ) ---
EXAM DESCRIPTION: CT HEAD WITHOUT COMPLETED DATE/TIME: 10/22/2018 10:40 am REASON FOR STUDY: psychosis COMPARISON: None. TECHNIQUE: Axial images acquired through the brain without intravenous contrast. Images reviewed wi th bone, brain and subdural windows. Additional sagittal and coronal reconstructions were generated. Images stored on PACS. All CT scanners at this facility use dose modulation, iterative reconstruction, and/or weight based d osing when appropriate to reduce radiation dose to as low as reasonably achievable (ALARA). [facility]: Dose Right [facility]: CareDose [facility]: Dose Right [facility]: Teradose 4D [facility]: Xmybox RADIATION DOSE: CT Rad equipment meets quality standard of care and radiation dose reduction techniq ues were employed. CTDIvol: 53.2 mGy. DLP: 991 mGy-cm. mGy. LIMITATIONS: None. FINDINGS: VENTRICLES: Normal size and contour. CEREBRUM: No masses. No hemorrhage. No midline shift. No evidence for acute infarction. Normal gra y/white matter differentiation. No areas of low density in the white matter. CEREBELLUM: No masses. No hemorrhage. No alteration of density. No evidence for acute infarction. EXTRAAXIAL SPACES: No fluid collections. No masses. ORBITS AND GLOBE: No intra- or extraconal masses. Normal contour of globe without masses. CALVARIUM: No fracture. PARANASAL SINUSES: No fluid or mucosal thickening. SOFT TISSUES: No mass or hematoma. OTHER: No other significant finding. IMPRESSION: No acute intracranial pathology. EVIDENCE OF ACUTE STROKE: NO. COMMENT: Quality ID # [id number]: Final reports with documentation of one or more dose reduction techniques (e.g., Automated exposure control, adjustment of the mA and/or kV according to patient size, use of iterative reconstruction technique) TECHNICAL DOCUMENTATION: JOB ID: [id number] [employer]- All Rights Reserved Reading location - IP/workstation name: [email or web address]
[2018-10-22] MEDS: RISPERIDONE 0.25 MG TABLET PO SCH ×2 (11:55→18:58)
[2018-10-22] MEDS: DIVALPROEX SODIUM 500 MG TAB.SR.24H PO SCH ×2 (11:56→18:58)
[2018-10-22] MEDS: BUSPIRONE HCL 10 MG TABLET PO SCH ×2 (11:56→18:59)
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
[2018-10-22] MEDS ORDERED: RISPERIDONE 0.25 MG TABLET PO SCH (18:00)
[2018-10-22] MEDS ORDERED: BUSPIRONE HCL 10 MG TABLET PO SCH (18:00)
[2018-10-22] MEDS ORDERED: DIVALPROEX SODIUM 500 MG TAB.SR.24H PO SCH (18:00)
[2018-10-23] MEDS: BUSPIRONE HCL 10 MG TABLET PO SCH ×2 (10:49→17:33)
[2018-10-23] MEDS: RISPERIDONE 0.25 MG TABLET PO SCH ×2 (10:50→17:33)
[2018-10-23] MEDS: DIVALPROEX SODIUM 500 MG TAB.SR.24H PO SCH ×2 (10:50→17:33)
--- NOTE | 2018-10-23 13:26 | ER Document Report ---
Doctor's Note Notes: 10/23/18 13:21 Patient is here being evaluated for psychosis. Has a history of follow-up psychotic behavior. Patient's labs appear to be essentially normal. Patient's vital signs are all normal. Patient does not appear to be in any distress. Wishes to go home. Patient appears to be medically stable for transfer or di scharge. Ly Nath MD
--- NOTE | 2018-10-23 15:14 | PSYCHOLOGICAL NOTE ---
Psych Note - Psych Note Date seen by psych provider: 10/23/18 Time seen by psych provider: 09:30 Psych Note: Reason for Consult: psychosis Patient's family member disclosed concerned the patient has altered mental status and showed clinician multiple text message (to include typed and spoken messages) between the patient and themselves demonstrating increased confusion, paranoia and irrational thoughts. Late entry for 10/22/2018 Behavioral health team spoke with patient's mother. She discloses concerns that the patient has progressed from delusions to reporting possible hallucinations of seeing people. Clinician spoke with APS transition social worker, Silvia, who confirms that the patient has made multiple 911 calls with concerns of seeing people outside of her home. It is unclear if the patient has been hallucinating however upon police responding no one is ever found. Check-in with patient conducted Patient reports that she is feeling "great." Mood is euthymic with congruent affect as evidenced by smiling engaging with clinician. Patient reports that the medication is not upsetting her stomach and states that she is only stopped taking medications because it upsets her stomach. Patient promises to continue to take medications and frequently requests to go home. Patient explained to patient that has been less than 24 hours starting medications and continued observation is necessary to determine if the medication is truly working. Diagnosis: 297.1 (F22) delusional disorder; Persecutory type (central theme of being poisoned) with somatic symptoms (ie frequent reports of abdominal pain, vomiting and nausea). Clinician notes there are some concerns the patient is now experiencing visual/auditory hallucinations however these are not prominent and directly correlate with patient's delusions. She has not demonstrated any negative symptoms, disorganized speech or presented grossly disorganized or catatonic. Additionally, patient is not demonstrating any current behaviors of responding to internal stimuli. This continues to support a diagnosis of delusional disorder over schizophrenia. Medication recommendations per [facility]'s contracted psychiatrist Dr. Anthony BALLESTEROS are as follows Depakote 500mg twice daily Buspar 5mg twice daily Rispirdone 0.25mg twice daily Impression/Plan: Recommendation to maintain IVC. Patient reports feeling better however avoids speaking about her delusional thoughts. Patient frequently is requesting to go home however medications were started less than 24 hours previous. Patient states that she "promises" to continue taking medications upon discharge because her the current medications that have been started are not making her feel sick. Patient will be reevaluated Dr. Nolan was consulted on the care and management of this patient; attending physician is in agreement with recommendations and disposition.
[2018-10-24 06:36] VITALS: BP 118/66
--- NOTE | 2018-10-24 09:43 | ER Document Report ---
Doctor's Note Notes: 10/24/18 09:42 Rounds: Chart reviewed and patient interviewed. Patient is here for evaluation of delusions and acute psychosis. She is been here for 3 days. Is on medications. Patient says that she is feeling much better and wishes to go home. Lab studies were all essentially normal. Vital signs are normal. Patient appears to be medically stable for transfer or discharge. Ly Nath MD
[2018-10-24] MEDS: DIVALPROEX SODIUM 500 MG TAB.SR.24H PO SCH (09:52)
[2018-10-24] MEDS: BUSPIRONE HCL 10 MG TABLET PO SCH (09:52)
[2018-10-24] MEDS: RISPERIDONE 0.25 MG TABLET PO SCH (09:53)
--- NOTE | 2018-10-25 15:20 | PSYCHOLOGICAL NOTE ---
Psych Note - Psych Note Date seen by psych provider: 10/24/18 Time seen by psych provider: 09:05 - Evaluation from [id number]. Psych Note: Presenting Problem: AMS, Psychosis, delusions, IVC, medication adjustments. Today she denied SI/HI and commented "not at all, not ever." She stated she was doing "good." She denied negative side effects from medications and specifically said "my stomach is just fine, it doesn't and hasn't hurt." She identified she may ask her PCM about switching Buspar to 10MG at night because it makes her drowsy. She inquired about discharge. She said she was not opposed to going to outpatient MH (said as long as her and providers get along) versus her PCM (Dr. Stephen Ely or Napoleon Cortez) at [facility]. Patient was alert and oriented x5, had linear thinking, was able to interact appropriately and express self/wants/needs. She agreed to include in plan of care. Diagnosis: 297.1 (F22) Delusional Disorder; Persecutory type (central theme of being poisoned) with somatic symptoms (ie frequent reports of abdominal pain, vomiting and nausea). Previously some concerns the patient experienced visual/auditory hallucinations however these were not prominent and directly correlated with patient's delusions. She has continued to not demonstrated any negative symptoms, disorganized speech or present grossly disorganized or catatonic. Additionally, patient is not demonstrating any current behaviors of responding to internal stimuli. This continues to support a diagnosis of delusional disorder over schizophrenia. Impression/Plan: Patient is cleared from acute psychiatric services. Recommen dation to rescind IVC. She denied SI/HI, these were never presenting concerns, an no observed psychosis that seemed to interfere with ability to interact appropriately and express self/wants/needs. She was alert and oriented x5. She included boyfriend in plan of care and he provided transportation. Patient provided with the outpatient MH resource sheet which highlighted [facility] for crisis/talk therapy/linkage to other services/supports, as well as highlighted [facility] and [facility] for outpatient services. Contacted APS, spoke to on-orthopedically impaired teacher Emely Juarez, informed her of discharge for continuity of care/care coordination since they were involved. Consulted with Dr. Nolan regarding the management and care of patient. ED Physician in agreement with recommendations.
== END 2018-10-24 13:55 | disposition home or self-care (01) ==
LOC: ER 12:00
DX: F23 Brief psychotic disorder (principal); K31.84 Gastroparesis; R10.9 Unspecified abdominal pain; R11.0 Nausea; R19.7 Diarrhea, unspecified
CPT/HCPCS: 36415; 80307 ×4; 83690; 85025; 81025; 80053; 81001; 74022; J1630; A9270 ×3; J2060; 96360; 96361; 96372; 99285; J3490

== ENCOUNTER 2019-07-03 22:22 | Emergency (ER) | payer MEDICARE, MEDICAID ==
[2019-07-03 23:25] LABS: ABSOLUTE BASOPHILS # (AUTO) 0.1 10^3/uL (0.0-0.2); ABSOLUTE EOSINOPHILS # (AUTO) 0.1 10^3/uL (0.0-0.6); ABSOLUTE LYMPHOCYTES (AUTO) 4.1 10^3/uL (0.5-4.7); ABSOLUTE MONOCYTES (AUTO) 0.5 10^3/uL (0.1-1.4); ABSOLUTE NEUT (AUTO) 4.5 10^3/uL (1.7-8.2); BASOPHILS % (AUTO) 0.6 % (0-2); EOSINOPHILS % (AUTO) 0.8 % (0-6); HEMATOCRIT 40.9 % (36.0-47.0); HEMOGLOBIN 14.9 g/dL (12.0-15.5); LYMPHOCYTES % (AUTO) 44.6 % (13-45); MEAN CORPUSCULAR HEMOGLOBIN 33.8 pg (27.0-33.4); MEAN CORPUSCULAR HGB CONC 36.5 g/dL (32.0-36.0); MEAN CORPUSCULAR VOLUME 93 fl (80-97); PLATELET COUNT 270 10^3/uL (150-450); RED BLOOD COUNT 4.42 10^6/uL (3.72-5.28); RED CELL DISTRIBUTION WIDTH 12.4 % (11.5-14.0); TOTAL CELLS COUNTED % (AUTO) 100 %; WHITE BLOOD COUNT 9.1 10^3/uL (4.0-10.5)
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
[2019-07-03 23:43] LABS: ALBUMIN 4.7 g/dL (3.5-5.0); ALKALINE PHOSPHATASE 43 U/L (38-126); ANION GAP 10 (5-19); ASPARTATE AMINO TRANSFERASE 24 U/L (14-36); BILIRUBIN,DIRECT 0.3 mg/dL (0.0-0.4); BILIRUBIN,TOTAL 0.5 mg/dL (0.2-1.3); BLOOD UREA NITROGEN 16 mg/dL (7-20); CARBON DIOXIDE 24 mmol/L (22-30); CHLORIDE 105 mmol/L (98-107); GLUCOSE 90 mg/dL (75-110); POTASSIUM 3.9 mmol/L (3.6-5.0); TOTAL PROTEIN 7.7 g/dL (6.3-8.2)
[2019-07-03 23:58] LABS: ACETAMINOPHEN < 10 ug/mL (10-30); ALCOHOL < 10 mg/dL (NONE DETECTED); SALICYLATE < 1.0 mg/dL (2.0-20.0)
--- NOTE | 2019-07-04 06:29 | EKG REPORT ---
SEVERITY:- NORMAL ECG - SINUS RHYTHM : Confirmed by: Dk Riggins MD 04-Jul-2019 06:28:20
[2019-07-04] MEDS: DICYCLOMINE HCL 20 MG TABLET PO SCH ×2 (07:58→13:30)
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
[2019-07-04 09:59] LABS: APPEARANCE,URINE SLIGHTLY-CLOUDY; BILIRUBIN,URINE NEGATIVE (NEGATIVE); COLOR,URINE AMBER; GLUCOSE, URINE NEGATIVE (NEGATIVE); KETONES,URINE 80 mg/dL (NEGATIVE); LEUKOCYTE ESTERASE,URINE NEGATIVE (NEGATIVE); NITRITE,URINE NEGATIVE (NEGATIVE); PROTEIN,URINE 30 mg/dL (NEGATIVE); URINE SPECIFIC GRAVITY 1.031; UROBILINOGEN,URINE NEGATIVE mg/dL (<2.0)
--- NOTE | 2019-07-04 10:16 | ER Document Report ---
Doctor's Note Notes: 07/04/19 10:16 Patient remains delusional. She is asking for TPN but does not want an IV. She is finally given a urine specimen. Patient has been evaluated by the psychiatric team who are hoping for placement today.
[2019-07-04 10:17] LABS: URINE AMPHETAMINES SCREEN NEGATIVE; URINE BARBITURATES SCREEN NEGATIVE; URINE BENZODIAZEPINES SCREEN NEGATIVE; URINE COCAINE SCREEN NEGATIVE; URINE MARIJUANA (THC) SCREEN NEGATIVE; URINE METHADONE SCREEN NEGATIVE; URINE PHENCYCLIDINE SCREEN NEGATIVE
[2019-07-04 12:59] VITALS: BP 129/82
== END 2019-07-04 13:47 ==
LOC: ER 22:22
DX: F20.0 Paranoid schizophrenia (principal); G80.9 Cerebral palsy, unspecified; K31.84 Gastroparesis; Z79.899 Other long term (current) drug therapy; Z88.1 Allergy status to other antibiotic agents; Z88.7 Allergy status to serum and vaccine; Z75.1 Person awaiting admission to adequate facility elsewhere
CPT/HCPCS: 93005; 99285; 36415; 80307 ×4; 84703; 85025; 80053; 81001; 80164; 93010; A9270; J3490

== ENCOUNTER 2019-07-22 20:56 | Emergency (ER) | payer MEDICARE, MEDICAID ==
--- NOTE | 2019-07-22 21:14 | ER Document Report ---
ED Medical Screen (RME) - General Chief Complaint: Psych Problem Stated Complaint: IVC WITH PAPERS Primary Care Provider: HAI GARCIA PA-C [Primary Care Provider] - Follow up as needed Notes: Patient is a 33-year-old white female with a history of gastroparesis and sarcoidosis who presents under IVC in police custody for aggressive behavior. The IVC states that she believes she is being poisoned. She is having delusional thoughts per family and being very aggressive and violent towards them. She does admit to seeing a psychiatrist in the past but denies any psychiatric conditions or medications for such. I have treated and performed a rapid initial assessment of this patient. A comprehensive ED assessment and evaluation of the patient, analysis of test results and completion of medical decision making process will be conducted by additional ED providers. PHYSICAL EXAMINATION: GENERAL: Well-appearing, well-nourished and in no acute distress. A&Ox4. Answers questions appropriately. TRAVEL OUTSIDE OF THE [place] IN LAST 30 DAYS: No - Related Data Allergies/Adverse Reactions: azithromycin [From Zithromax] Allergy (Verified 10/21/18 12:01) tetanus and diphtheria toxoids Allergy (Verified 10/21/18 12:01) Past Medical History Renal/ Medical History: Denies: Hx Peritoneal Dialysis GI Medical History: Reports: Hx Diverticulitis Psychiatric Medical History: Reports: Hx Depression - anxiety, Hx Schizophrenia Past Surgical History: Reports: Hx Orthopedic Surgery - foot/hip param - Immunizations Hx Diphtheria, Pertussis, Tetanus Vaccination: Yes Physical Exam - Vital signs Vitals: Temp Pulse Resp BP Pulse Ox 98.9 F 112 H 20 135/90 H 112 H 07/22/19 21:05 07/22/19 21:05 07/22/19 21:05 07/22/19 21:05 07/22/19 21:05 Course - Vital Signs Vital signs: Temp Pulse Resp BP Pulse Ox 98.9 F 112 H 20 135/90 H 112 H 07/22/19 21:05 07/22/19 21:05 07/22/19 21:05 07/22/19 21:05 07/22/19 21:05 Doctor's Discharge - Discharge Referrals: HAI GARCIA PA-C [Primary Care Provider] - Follow up as needed
[2019-07-22 21:55] LABS: ABSOLUTE LYMPHOCYTES (AUTO) 3.4 10^3/uL (0.5-4.7); ABSOLUTE MONOCYTES (AUTO) 0.3 10^3/uL (0.1-1.4); ABSOLUTE NEUT (AUTO) 3.7 10^3/uL (1.7-8.2); BASOPHILS % (AUTO) 0.5 % (0-2); EOSINOPHILS % (AUTO) 0.6 % (0-6); HEMATOCRIT 42.2 % (36.0-47.0); HEMOGLOBIN 14.8 g/dL (12.0-15.5); MEAN CORPUSCULAR HEMOGLOBIN 32.5 pg (27.0-33.4); MEAN CORPUSCULAR VOLUME 93 fl (80-97); MONOCYTES % (AUTO) 4.7 % (3-13); PLATELET COUNT 323 10^3/uL (150-450); RED BLOOD COUNT 4.55 10^6/uL (3.72-5.28); RED CELL DISTRIBUTION WIDTH 12.7 % (11.5-14.0); SEGMENTED NEUTROPHILS % (AUTO) 49.2 % (42-78); TOTAL CELLS COUNTED % (AUTO) 100 %; WHITE BLOOD COUNT 7.4 10^3/uL (4.0-10.5)
[2019-07-22] MEDS ORDERED: CHLORPROMAZINE HCL INJ 25 MG/1 ML AMPULE IM SCH (22:00)
[2019-07-22 22:05] LABS: ALBUMIN 4.7 g/dL (3.5-5.0); ALKALINE PHOSPHATASE 38 U/L (38-126); ANION GAP 10 (5-19); ASPARTATE AMINO TRANSFERASE 29 U/L (14-36); BILIRUBIN,TOTAL 0.4 mg/dL (0.2-1.3); BLOOD UREA NITROGEN 10 mg/dL (7-20); CALCIUM 9.6 mg/dL (8.4-10.2); CARBON DIOXIDE 24 mmol/L (22-30); CHLORIDE 106 mmol/L (98-107); GLUCOSE 100 mg/dL (75-110); TOTAL PROTEIN 7.4 g/dL (6.3-8.2)
[2019-07-22 22:06] LABS: ACETAMINOPHEN < 10 ug/mL (10-30); SALICYLATE < 1.0 mg/dL (2.0-20.0)
--- NOTE | 2019-07-22 22:22 | ER Document Report ---
Entered by AZIZA MADISON SCRIBE 07/22/[id number] Acting as scribe for:RALPH APARICIO IV, MD ED Psych Disorder / Suicide - General Chief Complaint: Psych Problem Stated Complaint: IVC WITH PAPERS Time Seen by Provider: 07/22/19 21:33 Primary Care Provider: HAI GARCIA PA-C [Primary Care Provider] - Follow up as needed Mode of Arrival: Ambulatory Information source: Patient, Relative, Emergency Med Personnel Notes: This 33 year old female patient with a history of anxiety, depression, and schizophrenia presents to the ED today in [facility] custody with IVC papers for aggressive behavior. Review of the IVC paperwork reveals that the patient believes she is being poisoned by her family. Per family, the patient has been having delusional thoughts and has become aggressive and violent towards them. Patient states that she has seen a psychiatrist in the past, but denies any psychiatric conditions or medications. Denies suicidal or homicidal ideation. Patient was seen here on 07/03/19 with IVC papers for similar behavior and was discharged the with a diagnosis of paranoid schizophrenia. She reports a past medical history of "severe" gastroparesis, sarcoidosis, and anemia and is requesting TPN. TRAVEL OUTSIDE OF THE [place] IN LAST 30 DAYS: No - Related Data Allergies/Adverse Reactions: azithromycin [From Zithromax] Allergy (Verified 10/21/18 12:01) tetanus and diphtheria toxoids Allergy (Verified 10/21/18 12:01) Past Medical History - General Information source: Patient, [facility] Records - Social History Smoking Status: Never Smoker Cigarette use (# per day): No Chew tobacco use (# tins/day): No Smoking Education Provided: No Lives with: Family Family History: Reviewed & Not Pertinent Patient has suicidal ideation: No Patient has homicidal ideation: No GI Medical History: Reports: Hx Diverticulitis Psychiatric Medical History: Reports: Hx Anxiety, Hx Depression, Hx Schizophrenia Past Surgical History: Reports: Hx Orthopedic Surgery - foot/hip param - Immunizations Hx Diphtheria, Pertussis, Tetanus Vaccination: Yes Review of Systems - Review of Systems Constitutional: See HPI, Other - IVC paperwork EENT: No symptoms reported Cardiovascular: No symptoms reported Respiratory: No symptoms reported Gastrointestinal: No symptoms reported Genitourinary: No symptoms reported Female Genitourinary: No symptoms reported Musculoskeletal: No symptoms reported Skin: No symptoms reported Hematologic/Lymphatic: No symptoms reported Neurological/Psychological: See HPI. denies: Homicidal ideation, Suicidal ideation -: Yes All other systems reviewed and negative Physical Exam - Vital signs Vitals: Temp Pulse Resp BP Pulse Ox 98.9 F 112 H 20 135/90 H 112 H 07/22/19 21:05 07/22/19 21:05 07/22/19 21:05 07/22/19 21:05 07/22/19 21:05 - General General appearance: Alert In distress: None - HEENT Head: Normocephalic, Atraumatic Eyes: Normal Pupils: PERRL - Respiratory Respiratory status: No respiratory distress Chest status: Nontender Breath sounds: Normal Chest palpation: Normal - Cardiovascular Rhythm: Regular Heart sounds: Normal auscultation Murmur: No Friction rub: No Gallop: None auscultated - Abdominal Inspection: Normal Distension: No distension Bowel sounds: Normal Tenderness: Nontender - Abdomen soft Organomegaly: No organomegaly - Back Back: Normal, Nontender - Extremities General upper extremity: Normal inspection General lower extremity: Normal inspection - Neurological Neuro grossly intact: Yes - Psychological Associated symptoms: Angry - Skin Skin Temperature: Warm Skin Moisture: Dry Skin Color: Normal Course - Vital Signs Vital signs: Temp Pulse Resp BP Pulse Ox 98.3 F 109 H 14 138/96 H 96 07/23/19 06:40 07/23/19 06:40 07/23/19 06:40 07/23/19 06:40 07/23/19 06:40 - Laboratory Result Diagrams: 07/22/19 21:20 07/22/19 21:20 Laboratory results interpreted by me: 07/22/19 21:20 Salicylates < 1.0 L Acetaminophen < 10 L - Transfer of Care Care transferred to following provider: dr [place] at 0640 Discharge - Discharge Clinical Impression: Aggressive behavior Condition: Good Disposition: OTHER Referrals: HAI GARCIA PA-C [Primary Care Provider] - Follow up as needed I personally performed the services described in the documentation, reviewed and edited the documentation which was dictated to the scribe in my presence, and it accurately records my words and actions.
[2019-07-22] MEDS: CHLORPROMAZINE HCL 50 MG TABLET PO SCH (22:39)
[2019-07-22] MEDS: BENZTROPINE MESYLATE 1 MG TABLET PO SCH (22:39)
[2019-07-23] MEDS: CHLORPROMAZINE HCL 50 MG TABLET PO SCH ×3 (06:53→22:40)
--- NOTE | 2019-07-23 08:49 | EKG REPORT ---
SEVERITY:- OTHERWISE NORMAL ECG - SINUS TACHYCARDIA : Confirmed by: Dk Riggins MD 23-Jul-2019 08:48:10
[2019-07-23] MEDS: BENZTROPINE MESYLATE 1 MG TABLET PO SCH (09:59)
[2019-07-23] MEDS ORDERED: DICYCLOMINE HCL 20 MG TABLET PO ONE (10:10)
[2019-07-23] MEDS ORDERED: DIPHENHYDRAMINE HCL 25 MG CAPSULE PO ONE (10:55)
[2019-07-23] MEDS ORDERED: CHLORPROMAZINE HCL INJ 25 MG/1 ML AMPULE IM ONE (11:54)
[2019-07-23 12:40] LABS: APPEARANCE,URINE SLIGHTLY-CLOUDY; BILIRUBIN,URINE NEGATIVE (NEGATIVE); CALCIUM OXALATE CRYSTALS,URINE FEW /HPF; COLOR,URINE AMBER; GLUCOSE, URINE NEGATIVE (NEGATIVE); KETONES,URINE 20 mg/dL (NEGATIVE); PROTEIN,URINE 30 mg/dL (NEGATIVE); URINE SPECIFIC GRAVITY 1.029
[2019-07-23 12:53] LABS: URINE AMPHETAMINES SCREEN NEGATIVE; URINE BARBITURATES SCREEN NEGATIVE; URINE BENZODIAZEPINES SCREEN NEGATIVE; URINE COCAINE SCREEN NEGATIVE; URINE MARIJUANA (THC) SCREEN NEGATIVE; URINE METHADONE SCREEN NEGATIVE; URINE PHENCYCLIDINE SCREEN NEGATIVE
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
[2019-07-23] MEDS: DICYCLOMINE HCL 10 MG CAPSULE PO SCH ×2 (17:57→22:41)
[2019-07-23] MEDS ORDERED: DIPHENHYDRAMINE HCL 25 MG CAPSULE PO SCH (18:00)
[2019-07-23] MEDS: DIPHENHYDRAMINE HCL 25 MG CAPSULE PO SCH (22:40)
[2019-07-24] MEDS: CHLORPROMAZINE HCL 50 MG TABLET PO SCH ×3 (06:28→22:06)
[2019-07-24] MEDS: DIPHENHYDRAMINE HCL 25 MG CAPSULE PO SCH ×3 (06:28→22:06)
[2019-07-24] MEDS: DICYCLOMINE HCL 10 MG CAPSULE PO SCH ×4 (10:54→22:06)
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
[2019-07-25] MEDS: CHLORPROMAZINE HCL 50 MG TABLET PO SCH (06:21)
[2019-07-25] MEDS: DIPHENHYDRAMINE HCL 25 MG CAPSULE PO SCH (06:21)
[2019-07-25 08:59] VITALS: BP 120/74
== END 2019-07-25 08:54 | disposition other institution (70) ==
LOC: ER 20:56
DX: F91.9 Conduct disorder, unspecified (principal); F41.9 Anxiety disorder, unspecified; F32.9 Major depressive disorder, single episode, unspecified; F20.9 Schizophrenia, unspecified; Z88.8 Allergy status to other drugs, medicaments and biological substances
CPT/HCPCS: 93005; 99285; 96372; 36415; 80307 ×3; 85025; 81025; 80053; 81001; 93010; J3230; A9270 ×9; J3490